=== PATIENT | male | born 1950 | race Caucasian/White ===

== ENCOUNTER 2016-07-18 06:16 | Observation (INO) ==
--- NOTE | 2016-07-18 06:42 | History and Physical Update ---
History and Physical Update - History and Physical H&P was reviewed, the patient examined and there: are no changes in the patients condition since last H&P was completed.
[2016-07-18] MEDS ORDERED: ceFAZolin 2,000 MG in PREMIX 1 EACH IV ONE (06:54)
[2016-07-18] MEDS ORDERED: METOCLOPRAMIDE 10 MG/2 ML VIAL ONE (07:21)
[2016-07-18] MEDS ORDERED: METOCLOPRAMIDE 10 MG/2 ML VIAL IV ONE (07:22)
[2016-07-18] MEDS ORDERED: FAMOTIDINE 20 MG/2 ML VIAL IV ONE ×2 (07:22→07:25)
[2016-07-18] MEDS ORDERED: ONDANSETRON 4 MG/2 ML VIAL ONE ×2 (07:30→10:12)
[2016-07-18] MEDS ORDERED: LIDOCAINE 2% 5 ML VIAL ONE (07:30)
[2016-07-18] MEDS ORDERED: PROPOFOL 200 MG/20 ML VIAL IV ONE (07:30)
[2016-07-18] MEDS ORDERED: HYDROmorphone 2 MG/1 ML VIAL IV PRN ×2 (09:37→10:22)
[2016-07-18] MEDS ORDERED: ACETAMINOPHEN 325 MG TABLET PO PRN (09:37)
[2016-07-18] MEDS ORDERED: oxyCODONE/ACETAMINOPHEN 5-325 MG TABLET PO PRN (09:37)
--- NOTE | 2016-07-18 09:51 | Operative Note ---
Date of procedure: 07/18/16 Pre-op diagnosis: Bilateral ischemic 10 toes/pressure ulcer of the scalp Post-op diagnosis: same Procedure: Operative note: Preoperative diagnosis: 1. 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 Pressure ulcer of the left side of scalp stage III Postoperative diagnosis: Same Procedure: 1. Right transmetatarsal amputation with flap closure 2. Left transmetatarsal amputation with flap closure 3. Excisional debridement of ulcer of the scalp Surgeon Dr. Alba Food Truck Caterer Macie Felton, [employer] ACNP Anesthesia general Brief history: 66-year-old white male who was septic while in [place] and during this time. His pressures were low he was on multiple pressors and he developed ischemic changes of the toes. He is done to [facility] where we have been treating him keep them clean and they have pretty well demarcated and it looks like we do not lose all the toes because of the ischemic changes in the necrotic eschar and tissue is present. Patient's are aware of this and agreeable to bilateral forefoot amputations. He also has a pressure ulcer of the posterior left Scalp area that looks like a stage III and will do some debridement there. Procedure: With patient supine position prepped and draped in sterile fashion timeout and antibiotics completed I then approached the area of the feet. We washed and cleaned up the Betadine and then marked our excisional incisions around the base of the toes at this time. At that point we went to the right foot were I did a incision through the skin subtenons tissue carried down deep into the tissue dividing the tendons at this time we got down to the bone. At that point I was able to get into the joints and completely disarticulate all the toes at this time to clean up this process. At real good bleeding that we had oversew with some 3-0 Vicryl suture on several arteries at this time. We debrided some tendon out of that and then I took the rondure and we debrided the cartilage off the metatarsal bone. At this point I felt like I had enough to close this and preserved metatarsal head so that maybe we could have better ambulation on him at this time. I was able to go ahead and washes up with saline solution then we were able to approximate the subtenons tissue 3-0 Vicryl and closed the skin with interrupted 3-0 nylon. With the right completed we went over to the left where in a similar fashion we went to the skin subtenons tissue going through at the base of the toes. Once I had cleaned this off completely I was able to disarticulate the toes themselves and remove them. I then took the drill and saw to go ahead and debride the cartilage off the bones. Had to debride little more the metatarsal head on the side in order to get a little better closure. Once that had been debrided and if that was cleaned we oversewed several vessels with 3-0 Vicryl in washed irrigated saline solution. We were then able to pull this together with 3-0 Vicryl in the subtenons tissue 3-0 nylon in the skin vertical mattress fashion. With these wounds completely Closed we were able to go ahead and clean up the legs and put a bulky dressing over it. That being completed I then went up to the left scalp area where initially I thought I might try to close this wound that looked like to be a little more tension more difficult than anticipated. The wound bed looks good with good granulating base present. It appears that he may be ready to go ahead and close I am still going to call as a stage III at this time. At this point I took the measurements which was 3 cm x 2.5 cm and then I took scissors and debrided the base of that wound removing the skin subtenons tissue around the edges and the deep subtenons tissue I this base. Once I had then had a good clean bleeding base and we put a bulky dressing on it. Patient was then taken to recovery room in stable satisfactory condition. Estimated blood loss 30 cc Sponge count correct 2 Drains none Complications none Condition stable satisfactory Anesthesia: ALPA Surgeon / Physician: Yariel Alba Food Truck Caterer: Macie Felton Estimated blood loss: other (30 cc) Specimens: other (Bilateral forefoot) Condition: stable Disposition: other ([facility]) Discharge Plan - Discharge Medications No Action Omeprazole [Prilosec] 20 mg PO BEDTIME Metoprolol Tartrate Tab [Lopressor Tab] 12.5 mg PO BEDTIME Lisinopril 20 mg PO BEDTIME HYDROcodone/ACETAMIN 7.5-325 [[place]co 7.5-325] 1 tablet PO Q4H PRN #30 tablet PRN Reason: Pain Moderate (4-7) Escitalopram [Lexapro] 10 mg PO BEDTIME Aspirin EC Tab 81 mg PO QOTHER DAY - Follow Up or Referral - Forms/Instructions
[2016-07-18] MEDS ORDERED: SODIUM CHLORIDE 0.45% 1,000 ML IV SCH (10:00)
[2016-07-18] MEDS ORDERED: ceFAZolin 2,000 MG in PREMIX 1 EACH IV SCH ×2 (10:00→13:30)
[2016-07-18] MEDS ORDERED: MIDAZOLAM 2 MG/2 ML VIAL ONE (10:03)
[2016-07-18] MEDS ORDERED: fentaNYL 100 MCG/2 ML VIAL ONE (10:03)
[2016-07-18] MEDS ORDERED: SEVOFLURANE 1 UNIT/15 MINUTE INH ONE (10:04)
[2016-07-18] MEDS ORDERED: HYDROmorphone 2 MG/1 ML VIAL ONE (10:12)
[2016-07-18] MEDS ORDERED: ONDANSETRON 4 MG/2 ML VIAL IV PRN (10:22)
[2016-07-18 10:23] LABS: Basophils # 0.1 10*3/uL (0.0-0.2); Basophils % 0.4 % (0.0-0.8); Eosinophils # 0.4 10*3/uL (0.0-0.87); Eosinophils % 2.2 % (0.00-10.9); Hematocrit 29.7 VOL% (42.0-52.0); Hemoglobin 9.4 GM/DL (14.0-18.0); Immature Granulocytes % 1.3 %; Immature Granulocytes Absolute 0.24 #; Lymphocytes # 2.5 10*3/uL (1.4-4.0); Lymphocytes % 14.1 % (21.2-54.2); Mean Corpuscular HGB Conc 31.6 GM/DL (32-36); Mean Corpuscular Hemoglobin 28 PG (27-34); Mean Corpuscular Volume 87.9 FL (87-102); Mean Platelet Volume 8.9 FL (9.6-12.0); Monocytes # 1.5 10*3/uL (0.11-0.8); Monocytes % 8.3 % (1.7-12.7); Neutrophils # 13.1 10*3/uL (1.4-7.4); Neutrophils % 73.7 % (38.7-73.9); Platelet Count 473 T/CUMM (130-400); Red Blood Count 3.38 MC/CUMM (3.8-5.5); White Blood Count 17.9 T/CUMM (4-12)
[2016-07-18] MEDS ORDERED: LACTATED RINGERS 1,000 ML IV SCH (10:30)
[2016-07-18 10:45] LABS: Calcium 8.4 MG/DL (8.5-10.1); Osmolality,Calculated 281.7 MOS/KG (273-304); Potassium 5.4 MMOL/L (3.5-5.1)
[2016-07-18 11:18] VITALS: BP 111/78
--- NOTE | 2016-07-18 14:06 | Anesthesia ---
Anesthesia Post OP - Post Ansesthetic Evaluation Patient seen in post op: Yes Resp: within normal limits CV: within normal limits Mental: within normal limits Temp: within normal limits [id number]: within normal limits Nausea and Vomiting: within normal limits Pain: within normal limits
[2016-07-18] MEDS ORDERED: LISINOPRIL 20 MG TABLET PO SCH (21:00)
[2016-07-18] MEDS ORDERED: METOPROLOL TARTRATE 25 MG TABLET PO SCH (21:00)
[2016-07-18] MEDS ORDERED: ESCITALOPRAM 10 MG TABLET PO SCH (21:00)
[2016-07-19] MEDS ORDERED: ENOXAPARIN 40 MG/0.4 ML SYRINGE SUBCUT SCH (03:41)
--- NOTE | 2016-07-19 11:49 | Pathology Report from [facility] ---
ACCESSION # : [id number] PATIENT NAME : Spencer Oates ORDERING DR : BECCA SANDY MD CLINICAL HX: Gangrene POST-OP DX: Same SPECIMEN INFO: #1 RT foot (5) toes #2 LT foot (5) toes GROSS DESCRIPTION: Received in formalin in two parts labeled:#1 "SPENCER OATES & #1" is a transmetatarsal amputation of gangrenous right great through 5th toes measuring 6.5 x 11.5 x 2.8 cm. A in store marketing representative section of gangrenous tissue is submitted in cassette #1.#2 "SPENCER OATES & #2" is a transmetatarsal amputation of the left gangrenous great through 5th toes measuring 7.0 x 10.5 x .28 cm. A in store marketing representative section is submitted in cassette #2. DIAGNOSIS FOR SPENCER OATES: #1 RIGHT FOOT FIVE TOES, AMPUTATION: Gangrene.#2 LEFT FOOT FIVE TOES, AMPUTATION: Gangrene. SERVICE DATE: 07/18/2016 REPORT DATE: 07/19/2016 PATHOLOGIST: Richmond Longoria
[2016-07-20] MEDS ORDERED: ASPIRIN EC 81 MG TABLET PO SCH (09:00)
== END 2016-07-18 13:19 ==
LOC: N.ICU
PROVIDERS: ADMIT Specialist; ATTEND Specialist

== ENCOUNTER 2016-10-23 19:45 | Inpatient (IN) ==
[2016-10-23] MEDS ORDERED: SODIUM CHLORIDE 0.9% 2,000 ML IV STA (21:25)
--- NOTE | 2016-10-23 21:25 | Emergency Department Note ---
I, Mendy De Luna, am scribing for, and in the presence of, Shimon Glaser MD 21:11. IJailyn Andrew, MD, personally performed the services described in this documentation, ascribed by Mendy De Luna in my presence, and it is both accurate and complete . Arrival - Arrival Chief Complaint: Fever Stated Complaint: HIGH FEVER ED Nursing Triage Note: C/C fever started yesterday. Recently has been septic before and stayed in hospital 3 months (has cancerous spot removed and got septic) Mode of Arrival: Wheelchair Limitations: No Limitations Source: Patient - History of Present Illness HPI Narrative: Pt is a 66 y/o male who came to ED with c/o fever that started yesterday. 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 Pt has appointment on November [address] Chan in [place] to replace with permanent stent (ERCP). Pt has associated sxs SOB and weakness. Family member notes that BP medications were switched and his BP has been more under control. PMHx of cholecystectomy. Onset (ago): day(s) Consistency: constant Severity: mild, moderate Severity scale (1-10): 4 Quality: aching Allergies/Adverse Reactions: Allergies Allergy/AdvReac Type Severity Reaction Status Date / Time No Known Allergies Allergy Verified 10/23/16 20:26 Home Medications: Home Medications Medication Instructions Recorded Confirmed Type Acetaminophen 325 mg PO Q6HR PRN 08/02/16 10/23/16 History Aspirin 81 mg PO DAILY 08/02/16 10/23/16 History Docusate Sodium 100 mg PO DAILY PRN 08/02/16 10/23/16 History Famotidine 20 mg PO BID 08/02/16 10/23/16 History Multivitamin (Centrum) [Centrum 1 tablet PO DAILY 08/02/16 10/23/16 History Tab] OLANZapine [Olanzapine] 5 mg PO Q8HR PRN 08/02/16 10/23/16 History Skin Healing Oint (Aquaphor) 1 applic TOP DAILY PRN 08/02/16 10/23/16 History [Aquaphor] oxyCODONE IR [Roxicodone] 5 mg PO Q4H PRN 08/02/16 10/23/16 History Collagenase Oint [Santyl Oint] 1 applic TOP DAILY #1 applic 08/10/16 10/23/16 Rx Metoprolol Tartrate 12.5 mg PO DAILY 10/24/16 10/24/16 History OLANZapine [Zyprexa] 10 mg PO DAILY 10/24/16 10/24/16 History Review of System - Review of System 12 point system: reviewed and no additional remarkable complaints except as stated - Review of System Constitutional: Present: fever, weakness, weight loss (55 lbs during 3 month hospital stay). Absent: chills Respiratory: Present: respiratory distress (SOB) Cardiovascular: Absent: chest pain Gastrointestinal: Absent: abdominal pain Medical,Surgical,& Family Hx - Medical History Cardio: History of: Hypertension No history of: CHF, CAD Psychological: History of: Anxiety Disorders No history of: Bipolar Disorder, Depression Neurology: No history of: Cerebrovascular Accident, Dementia, Parkinson's Disease, Seizures HEENT: History of: Eye Problem (double vision) Endocrine: No history of: Diabetes Mellitus (IDDM), Thyroid Disorder Rheumatology: No history of;: Fibromyalgia, Rheumatoid Arthritis Respiratory: History of: Intubation No history of: Asthma, Bronchitis, Pneumonia Renal: History of: Dialysis (temporarily during ARF, discontinued), Renal Failure (acute) Genitourinary: History of: Kidney Stones Gastrointestinal: History of: GERD, Hemorrhoids (occassionally) No history of: Crohn's Disease, Ulcerative Colitis Musculoskeletal: History of: Amputation (bilat complete metatarsal amputation) No history of: Osteoporosis Hematology: No history of: Anemia, Blood Transfusion Reaction, Blood Disorders Other: No history of: Cancer, Skin Problems - Surgical History Cardiac Surgeries: Patient Denies: Cardiac Catheterization, Cardiac Surgery Thoracic Surgeries: Patient denies;: Organ Transplant Neurologic Surgeries: Patient denies: Neurologic Surgery HEENT Surgeries: Surgical HX of: Eye Surgery (Lasik eye surgery) Patient denies: Tonsilectomy & Adenoidectomy Abdominal Surgeries: Surgical HX of: Cholecystectomy, Colonoscopy, Hernia Repair (umbilical 12 years ago) Patient denies: Appendectomy Reproductive Surgeries: Surgical HX of;: Genitourinary Surgery (circumsion 12 years ago) Orthopedic Surgeries: Patient denies;: Total Hip Replacement, Total Knee Replacement - Family History Family History: Reports;: Family Cancer, Family Stroke Denies;: Family Anesthesia Reaction, Family Diabetes, Family Heart Disease, Family Hypertension, Family Psychiatric Problems - Social History Smoking Status: Never smoker Exam Vital Signs: Vital Signs Temperature 98.4 F 10/24/16 03:50 Pulse Rate 105 H 10/24/16 05:04 Respiratory Rate 18 10/24/16 03:50 Blood Pressure 97/54 10/24/16 03:50 O2 Sat by Pulse Oximetry 100 10/24/16 03:50 - General General appearance: alert, in no apparent distress - Head Head exam: Present: atraumatic, normocephalic - Eye Eye exam: Present: PERRL, EOMI - ENT ENT exam: Present: mucous membranes moist. Absent: mucous membranes dry - Neck Neck exam: Present: full ROM. Absent: tenderness - Chest Chest inspection: Present: symmetric chest wall rise. Absent: tenderness - Respiratory Respiratory exam: Present: normal lung sounds bilaterally. Absent: accessory muscle use, respiratory distress - Cardiovascular Cardiovascular exam: Present: tachycardia, normal heart sounds - Abdominal Exam Abdominal exam: Present: soft, normal bowel sounds. Absent: tenderness - Extremities Exam Extremities exam: Present: full ROM. Absent: tenderness, pedal edema - Neurological Exam Neurological exam: Present: alert, oriented X3, CN II-XII intact. Absent: motor sensory deficit - Psychiatric Psychiatric exam: Present: normal affect, normal mood - Skin Skin exam: Present: warm, dry Course Course Narrative: Labs with multiple abnormalities, elevated total bilirubin at 2 which is a significant jump from previous, also with elevated alkaline phosphatase and AST , ALT.CT scan without evidence of biliary stent occlusion. Patient discussed with Dr. Lacey with GI, he states that it would be a good idea to observe the patient, and if the patient is to need any GI intervention for the biliary stent, he feels comfortable handling this. Patient discussed with the hospitalist for admission for further management and workup. Results - Labs CBC & BMP: 10/24/16 04:34 10/23/16 20:54 Lab Results: I have reviewed the patients labs Labs: Laboratory Tests 10/23/16 10/23/16 20:54 20:54 WBC 9.8 RBC 4.35 Hgb 13.0 L Hct 37.8 L MCV 86.9 L Plt Count 214 Neut % (Auto) 85.6 H Lymph % (Auto) 5.2 L Neut # (Auto) 8.4 H Lymph # (Auto) 0.5 L Lymphocytes 8 L Platelet Estimate Adequate Sodium 138 Potassium 3.1 L Chloride 104 Carbon Dioxide 22 Anion Gap 15.1 H Glucose 222 H Total Bilirubin 2.10 H AST 172 H ALT 160 H Alkaline Phosphatase 945 H Lipase 86.0 Laboratory Tests 10/23/16 22:50 Urine Color Aileen Urine Appearance Clear Urine pH 5.0 Ur Specific [place] 1.026 Urine Blood Negative Urine Urobilinogen 2.0 H Urine RBC 1 Urine WBC 2 Urine Mucus Occasional Disposition Clinical Impression: Total bilirubin, elevated, Fever, Elevated liver enzymes, History of biliary stent insertion Case discussed with: patient, patient's family Disposition: Still a Patient Condition: Guarded
[2016-10-23 21:33] LABS: Basophils % 0.2 % (0.0-0.8); Eosinophils % 0.3 % (0.00-10.9); Hematocrit 37.8 VOL% (42.0-52.0); Immature Granulocytes % 0.4 %; Immature Granulocytes Absolute 0.04 #; Lymphocytes # 0.5 10*3/uL (1.4-4.0); Lymphocytes % 5.2 % (21.2-54.2); Mean Corpuscular HGB Conc 34.4 GM/DL (32-36); Mean Corpuscular Hemoglobin 30 PG (27-34); Mean Corpuscular Volume 86.9 FL (87-102); Mean Platelet Volume 10.1 FL (9.6-12.0); Monocytes # 0.8 10*3/uL (0.11-0.8); Monocytes % 8.3 % (1.7-12.7); Neutrophils # 8.4 10*3/uL (1.4-7.4); Neutrophils % 85.6 % (38.7-73.9); Platelet Count 214 T/CUMM (130-400); Red Blood Count 4.35 MC/CUMM (3.8-5.5); Red Cell Distribution Width 13.4 % (9.3-17.3); White Blood Count 9.8 T/CUMM (4-12)
[2016-10-23 21:47] LABS: Albumin 3.6 G/DL (3.4-5.0); Bilirubin,Total 2.1 MG/DL (0.2-1.0); Calcium 8.9 MG/DL (8.5-10.1); Osmolality,Calculated 281.7 MOS/KG (273-304); Potassium 3.1 MMOL/L (3.5-5.1); Total Protein 6.4 G/DL (6.4-8.3)
[2016-10-23 21:53] LABS: Band Neutrophils 8 % (0-10); Lymphocytes 8 % (20-55); Segmented Neutrophils 75 % (50-85); Total Cells Counted 100
[2016-10-23 21:54] LABS: Platelet Estimate Adequate
[2016-10-23 22:57] LABS: Apearance,Urine CLEAR (Clear); Bilirubin,Urine Negative (Negative); Blood, Urine Negative (Negative); Glucose,Urine (UA) Negative (Negative); Ketones,Urine Negative (Negative); Mucus,Urine Occasional /LPF (Occasional); Nitrite,Urine Negative (Negative); Protein,Urine Negative; RBC,Urine 1 /HPF (0-4); Urine Color Amber (Yellow); Urine Specific Gravity 1.026 (1.001-1.035); WBC,Urine 2 /HPF (0-6)
[2016-10-23] MEDS ORDERED: ACETAMINOPHEN 500 MG TABLET ONE (23:40)
[2016-10-23] MEDS ORDERED: ACETAMINOPHEN 500 MG TABLET PO STA (23:41)
[2016-10-24] MEDS ORDERED: BISACODYL 5 MG TABLET PO PRN (01:42)
[2016-10-24] MEDS ORDERED: ONDANSETRON 4 MG/2 ML VIAL IV PRN (01:42)
[2016-10-24] MEDS ORDERED: POTASSIUM CHLORIDE 20 MEQ TABLET PO ONE (01:42)
[2016-10-24] MEDS ORDERED: ZALEPLON 5 MG CAPSULE PO PRN (01:42)
--- NOTE | 2016-10-24 01:51 | Hospitalist History & Physical ---
Assessment and Plan (1) Diverticulitis Status: Acute Assessment and plan: Start Cipro and Flagyl. Consult GI. IV fluids. Current Visit: Yes (2) History of biliary stent insertion Status: Acute Current Visit: Yes (3) Abnormal LFTs (liver function tests) Status: Acute Assessment and plan: Elevated AST ALT and alk phos with elevated bilirubin. GI consult Dr. Lacey. Current Visit: Yes (4) Hyperbilirubinemia Status: Acute Current Visit: Yes (5) S/P transmetatarsal amputation of foot Status: Chronic Current Visit: No History of Present Illness Chief complaint: Fever History of present illness: Mr. Oates is a 66 year old male that came to ED with c/o fever that started yesterday. 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 He was hospitlaized with sepsis at [facility] with 55 lbs of weight loss during hospitalization of 3 months. Pt has appointment on November [address] Chan in [place] to replace with permanent stent (ERCP). Pt has associated sxs SOB and weakness. Family member notes that BP medications were switched and his BP has been more under control. PMHx of cholecystectomy. He denies any recent illness or hospitalization. He has no other symptoms associated with his fever. He denies nausea or vomiting. No diarrhea. No night sweats. No cough or congestion. He was evaluated in the emergency department with a CT scan of the abdomen and pelvis which showed some colonic wall thickening suggestive of diverticulitis. His liver imaging did not show any acute pathology although his liver function tests are abnormal. His spleen did not appear normal on the CT either. Dr. Lacey was contacted by the emergency room physician regarding his abnormal LFTs and CT scan findings. The patient will not be admitted to the hospitalist service as his primary care physician is Dr. Jacques. I will start him on broad-spectrum IV antibiotics with Cipro and Flagyl to treat for diverticulitis and other possible intra- abdominal pathology. The patient's abdomen is soft and nontender and nondistended. He is pleasant and cooperative. His family is at the bedside. He is a full code. His home medications were reviewed and reconciled. He does not know the dose of Zyprexa he is currently taking. His family will try to get us that dose tomorrow. He is otherwise feeling well. Home Medications Medication Instructions Recorded Confirmed Type Acetaminophen 325 mg PO Q6HR PRN 08/02/16 10/23/16 History Aspirin 81 mg PO DAILY 08/02/16 10/23/16 History Docusate Sodium 100 mg PO DAILY PRN 08/02/16 10/23/16 History Famotidine 20 mg PO BID 08/02/16 10/23/16 History Multivitamin (Centrum) [Centrum 1 tablet PO DAILY 08/02/16 10/23/16 History Tab] OLANZapine [Olanzapine] 5 mg PO Q8HR PRN 08/02/16 10/23/16 History Skin Healing Oint (Aquaphor) 1 applic TOP DAILY PRN 08/02/16 10/23/16 History [Aquaphor] oxyCODONE IR [Roxicodone] 5 mg PO Q4H PRN 08/02/16 10/23/16 History Collagenase Oint [Santyl Oint] 1 applic TOP DAILY #1 applic 08/10/16 10/23/16 Rx Metoprolol Tartrate 12.5 mg PO DAILY 10/24/16 10/24/16 History OLANZapine [Zyprexa] mg PO 10/24/16 History Allergies Allergy/AdvReac Type Severity Reaction Status Date / Time No Known Allergies Allergy Verified 10/23/16 20:26 Medical,Surgical,& Family Hx - Medical History Cardio: History of: Hypertension No history of: CHF, CAD Psychological: History of: Anxiety Disorders No history of: Bipolar Disorder, Depression Neurology: No history of: Cerebrovascular Accident, Dementia, Parkinson's Disease, Seizures HEENT: History of: Eye Problem (double vision) Endocrine: No history of: Diabetes Mellitus (IDDM), Thyroid Disorder Rheumatology: No history of;: Fibromyalgia, Rheumatoid Arthritis Respiratory: History of: Intubation No history of: Asthma, Bronchitis, Pneumonia Renal: History of: Dialysis (temporarily during ARF, discontinued), Renal Failure (acute) Genitourinary: History of: Kidney Stones Gastrointestinal: History of: GERD, Hemorrhoids (occassionally) No history of: Crohn's Disease, Ulcerative Colitis Musculoskeletal: History of: Amputation (bilat complete metatarsal amputation) No history of: Osteoporosis Hematology: No history of: Anemia, Blood Transfusion Reaction, Blood Disorders Other: No history of: Cancer, Skin Problems - Surgical History Cardiac Surgeries: Patient Denies: Cardiac Catheterization, Cardiac Surgery Thoracic Surgeries: Patient denies;: Organ Transplant Neurologic Surgeries: Patient denies: Neurologic Surgery HEENT Surgeries: Surgical HX of: Eye Surgery (Lasik eye surgery) Patient denies: Tonsilectomy & Adenoidectomy Abdominal Surgeries: Surgical HX of: Cholecystectomy, Colonoscopy, Hernia Repair (umbilical 12 years ago) Patient denies: Appendectomy Reproductive Surgeries: Surgical HX of;: Genitourinary Surgery (circumsion 12 years ago) Orthopedic Surgeries: Patient denies;: Total Hip Replacement, Total Knee Replacement - Family History Family History: Reports;: Family Cancer, Family Stroke Denies;: Family Anesthesia Reaction, Family Diabetes, Family Heart Disease, Family Hypertension, Family Psychiatric Problems - Social History Smoking Status: Never smoker Frequency of Alcohol Use: None Type of Drug Use: None Marital Status: Lives With:: Spouse Functional capacity: uses cane/walker 12 point system: reviewed and no additional remarkable complaints except as stated - Constitutional Constitutional: Present: fever(s) Exam - Constitutional Vitals: Period Temp Pulse Resp BP Sys/Parry Pulse Ox Last 24 Hr 98.8 F-99.3 F 124-124 18-20 99-99/63-63 96 Exam: Constitutional System: No distress. No tremulousness. Head: Normocephalic, atraumatic. Ears, Nose and Throat System: No pain or tenderness. No epistaxis or discharge Eyes System: Pupils equal, round, and reactive. Extraocular muscles intact. Neck: Supple, without adenopathy, No jugular venous distention. No thyromegaly, neck mass, or prior surgery apparent. Respiratory System: Chest clear to auscultation. Cardiovascular System: Heart with regular rate and rhythm. No murmur. GI System: Abdomen soft, nontender. Normo active bowel sounds present. Musculoskeletal System: limbs with no pedal edema. Full distal pulses. Toe amputations noted Neurological System: No discernable sensory deficit. No aphasia Psychiatric System: Conversation is rational Results - Labs CBC & BMP: 10/23/16 20:54 10/23/16 20:54 Lab Results: I have reviewed the past 24 hour labs - Diagnostic Findings Procedure: CT Abdomen and Pelvis: image reviewed by me, report reviewed by me
[2016-10-24] MEDS ORDERED: SKIN HEALING OINT (AQUAPHOR) 50 GM TUBE TOP PRN (02:27)
[2016-10-24] MEDS ORDERED: DOCUSATE SODIUM 100 MG CAPSULE PO PRN (02:27)
[2016-10-24] MEDS: metroNIDAZOLE INJ 500 MG in PREMIX 1 EACH IV SCH ×3 (02:54→17:28)
[2016-10-24] MEDS: ENOXAPARIN 40 MG/0.4 ML SYRINGE SUBCUT SCH (02:56)
[2016-10-24] MEDS: CIPROFLOXACIN INJ 400 MG in PREMIX 1 EACH IV SCH ×2 (03:45→13:59)
[2016-10-24 05:25] LABS: Basophils % 0.2 % (0.0-0.8); Eosinophils % 0.3 % (0.00-10.9); Hematocrit 35.5 VOL% (42.0-52.0); Hemoglobin 11.7 GM/DL (14.0-18.0); Immature Granulocytes % 0.6 %; Immature Granulocytes Absolute 0.07 #; Lymphocytes # 1.1 10*3/uL (1.4-4.0); Lymphocytes % 9.3 % (21.2-54.2); Mean Corpuscular Hemoglobin 30 PG (27-34); Mean Corpuscular Volume 89.6 FL (87-102); Monocytes # 0.7 10*3/uL (0.11-0.8); Monocytes % 6.2 % (1.7-12.7); Neutrophils % 83.4 % (38.7-73.9); Platelet Count 199 T/CUMM (130-400); Red Blood Count 3.96 MC/CUMM (3.8-5.5); Red Cell Distribution Width 13.5 % (9.3-17.3)
--- NOTE | 2016-10-24 06:03 | XRay Report ---
XR chest 1V portable Indication: Shortness of breath and fever. Comparison: Chest x-ray 08/01/2016 Technique: Portable AP chest was performed. Findings: Left lung base has improved in appearance with better definition of the left hemidiaphragm as well as decreased blunting the left costophrenic angle. Nonspecific stranding present bilaterally within the lung bases may impart reflect atelectasis. The mid and upper lungs are clear. The chest is otherwise stable. Impression: 1. Improved appearance of the left lung base compared to previous study suggests improving left-sided pleural effusion. Lung parenchyma suggests bibasilar atelectatic changes. 10/24/2016 5:59 AM PROCEDURE INTERPRETED AT [facility] DEPARTMENT OF RADIOLOGY Final Report Signed by: Dr. Moreno Rey
[2016-10-24 06:07] LABS: Albumin 3.1 G/DL (3.4-5.0); Bilirubin,Total 1.8 MG/DL (0.2-1.0); Calcium 8.5 MG/DL (8.5-10.1); Magnesium 1.7 MG/DL (1.8-2.4); Osmolality,Calculated 280.3 MOS/KG (273-304); Potassium 4.6 MMOL/L (3.5-5.1); Thyroid Stimulating Hormone 1.6 uIU/ml (0.358-3.74); Total Protein 5.8 G/DL (6.4-8.3)
[2016-10-24 06:30] LABS: Band Neutrophils 30 % (0-10); Hypochromasia Slight; Lymphocytes 2 % (20-55); Platelet Estimate Adequate; Segmented Neutrophils 59 % (50-85); Total Cells Counted 100
--- NOTE | 2016-10-24 06:33 | CT Report ---
CT abdomen pelvis w con Indication: Elevated bilirubin levels. History of previous biliary stent placement. Fever. Comparison: CT of abdomen and pelvis 05/16/2016. Technique: CT of the abdomen and pelvis was performed following administration of intravenous contrast. The CT examination was performed using one or more of the following dose reduction techniques: Automatic exposure control, adjustment of the mA and kV according to patient size, or iterative reconstruction techniques. Findings: Small left-sided pleural effusion and associated compressive atelectasis of the left lower lobe is demonstrated. Trace right-sided pleural effusion additionally is suggested. Heart size appears upper limits of normal. The distal esophagus is grossly unremarkable. Underlying the anterior margin of the lateral segment left hepatic lobe, there is a hypoattenuating lesion with some evidence of peripheral enhancement measuring 2.1 cm transverse dimension, 1.5 cm in AP dimension, and 1.9 cm in craniocaudal dimension. This lesion has developed since the comparison study. Extensive air is present throughout the biliary system. A second 10 mm lesion is present within the hilum of the right hepatic lobe image #50. This also was not previously demonstrated. These lesions are compatible with metastatic disease. Spleen is enlarged. There is a complex fluid collection present along the lateral surface of the spleen. The spleen demonstrates a central linear focus of low attenuation extends from the lateral surface through the spleen. Spleen measures 15 cm x 7.3 cm x 11.2 cm. This fluid collection has a small focus of organization measuring 3.9 x 1.9 x 2.4 cm with additional fluid more laterally located. Differential considerations include postoperative fluid collections, abscess, sequelae of splenic rupture, and infection. In addition, there is a small splenule suggested which has increased in size since the comparison study. This has heterogeneous attenuation and portal venous phase isoattenuates displacing the delayed phase and may simply reflect late arterial phase artifact. Numerous collaterals are noted in the splenic hilum. Distal biliary stent remains present. The pancreatic head is not well defined. No ductal dilatation of the pancreas is present with the exception of a short segment of duct enlargement within the distal pancreatic body. Pancreatic head mass and/or biliary mass cannot be excluded. Numerous bilateral renal cysts again are demonstrated. Adrenal glands are unremarkable. The appearance of the stomach suggests some antral thickening. The duodenum demonstrates no evidence of acute pathology. Small bowel loops demonstrate no specific abnormality. Numerous diverticula are present within the sigmoid colon and rectum as well as descending colon. No acute inflammation is present. There does appear to be some wall thickening along the ascending colon that is nonspecific and could reflect inflammation. Intrapelvic contents demonstrate no evidence of acute pathology. Enlarged portacaval lymph nodes measure up to 12 mm. Osseous structures demonstrate no evidence of acute pathology. Total loss of intervertebral disc space at L3-4 and L5-S1 is present with vacuum disc phenomenon at these levels. Multilevel facet arthropathy is noted bilaterally within the lower lumbar spine. Sclerotic lesion of the left iliac wing has changed little in size or appearance since the comparison study. Additional small foci of increased attenuation noted within the left sacrum adjacent the left SI joint with small foci of tissue present within the posterior ilium as well as multiple vertebral bodies of the lumbar spine. Impression: 1. Interval development of fluid collection along the lateral boundary of the spleen with defect of the spleen as well as splenomegaly, minimal associated findings to suggest portal venous hypertension could reflect evidence of splenic rupture or other laceration and adjacent splenic hematoma without evidence of extravasation of contrast. Other considerations could include infection and abscess as well as postsurgical changes. 2. Biliary stent remains present. There is extensive air throughout the biliary system as well as air-fluid level within the extrahepatic bile duct. Infectious process is not excluded. 3. Portacaval adenopathy has differentials including metastatic as well as reactive etiologies. 4. Interval development of multiple liver lesions compatible with metastatic disease. 5. Colonic diverticulosis is present without evidence of diverticulitis. 6. Small left-sided pleural effusion. 7. Minimal wall thickening involving the ascending colon is a nonspecific finding. There may be additional minimal wall thickening the transverse large bowel. 10/24/2016 6:19 AM PROCEDURE INTERPRETED AT [facility] DEPARTMENT OF RADIOLOGY Final Report Signed by: Dr. Moreno Rey
--- NOTE | 2016-10-24 08:03 | Event Note ---
Patient was seen and chart reviewed. Patient admitted last evening by Dr. rivas. This is 66-year-old male who came to the emergency room with fever. CT scanning of the abdomen and pelvis revealed some colonic wall thickening suggestive of diverticulitis. He also had elevated liver function studies and has had biliary stent placement at [facility] in the past. He is now being admitted for IV fluids, IV antibiotics and formal GI consultation.
[2016-10-24] MEDS ORDERED: MORPHINE 2 MG/1 ML SYRINGE IV PRN ×2 (08:51)
[2016-10-24] MEDS: PANTOPRAZOLE 40 MG TABLET PO SCH (09:04)
[2016-10-24] MEDS: ASPIRIN CHEW 81 MG TABLET PO SCH (09:04)
[2016-10-24] MEDS: MULTIVITAMIN (CENTRUM) TABLET PO SCH (09:04)
[2016-10-24] MEDS: METOPROLOL TARTRATE 25 MG TABLET PO SCH (09:04)
[2016-10-24] MEDS: FAMOTIDINE 20 MG TABLET PO SCH ×2 (09:04→20:04)
[2016-10-24] MEDS: COLLAGENASE OINT 30 GM TUBE TOP SCH (09:05)
--- NOTE | 2016-10-24 10:51 | EKG Report ---
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
--- NOTE | 2016-10-24 14:07 | Gastrointestinal Consult Note ---
Assessment and Plan (1) Fever Status: Acute Assessment and plan: Source for this unclear but may be biliary/element of cholangitis. Common bile duct stent, presumably 10 D[address], has been in place for 4-1/2 months. However, on CT large amount of pneumobilia is present suggesting the stent is patent. Also liver tests which were mildly elevated last night or some improved today. Has questionable right colon thickening on CT raising question of inflammatory process there such as diverticulitis but he has no symptoms referable to this and is nontender on exam. I agree with empiric IV quinolone for now and await blood culture data. Repeat liver profile tomorrow. If blood cultures grow organisms suggestive of cholangitis source, such as E. coli, or liver tests trend upward, he will need common bile duct stent replacement. He is scheduled to go back to [facility] with Dr. Chan for metal common bile duct stent placement they say on 11/03. Current Visit: Yes History of Present Illness Chief complaint: Fever History of present illness: Mr. Oates is a 66 year old male who had clinical diagnosis of cholangiocarcinoma made at [facility] on 06/10/16. He had initially had mid common bile duct stricture noted at intraoperative cholangiogram for cholecystectomy with symptomatic gallstones. ERCP was performed then by me with suboptimal opacification of common bile duct. He was referred to [facility] and ultimately had ERCP by Dr. Chan. I do not have all of his records but patient and family describe what sound like cytologic brushings which were negative though he still felt this was malignancy. 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 Patient presented to the emergency room last night after developing fever with chills. He had fever to 101 at home. He denies any localizing GI symptoms including abdominal pain, change in bowel movement, or nausea/vomiting. He also denies cough, sputum production, or any genitourinary symptoms other than he has noted his urine to be darker the last few days. Home Medications Medication Instructions Recorded Confirmed Type Acetaminophen 325 mg PO Q6HR PRN 08/02/16 10/23/16 History Aspirin 81 mg PO DAILY 08/02/16 10/23/16 History Docusate Sodium 100 mg PO DAILY PRN 08/02/16 10/23/16 History Famotidine 20 mg PO BID 08/02/16 10/23/16 History Multivitamin (Centrum) [Centrum 1 tablet PO DAILY 08/02/16 10/23/16 History Tab] OLANZapine [Olanzapine] 5 mg PO Q8HR PRN 08/02/16 10/23/16 History Skin Healing Oint (Aquaphor) 1 applic TOP DAILY PRN 08/02/16 10/23/16 History [Aquaphor] oxyCODONE IR [Roxicodone] 5 mg PO Q4H PRN 08/02/16 10/23/16 History Collagenase Oint [Santyl Oint] 1 applic TOP DAILY #1 applic 08/10/16 10/23/16 Rx Metoprolol Tartrate 12.5 mg PO DAILY 10/24/16 10/24/16 History OLANZapine [Zyprexa] 10 mg PO DAILY 10/24/16 10/24/16 History Allergies Allergy/AdvReac Type Severity Reaction Status Date / Time No Known Allergies Allergy Verified 10/23/16 20:26 Medical,Surgical,& Family Hx - Medical History Cardio: History of: Hypertension No history of: CHF, CAD Psychological: History of: Anxiety Disorders No history of: Bipolar Disorder, Depression Neurology: No history of: Cerebrovascular Accident, Dementia, Parkinson's Disease, Seizures HEENT: History of: Eye Problem (double vision) Endocrine: No history of: Diabetes Mellitus (IDDM), Thyroid Disorder Rheumatology: No history of;: Fibromyalgia, Rheumatoid Arthritis Respiratory: History of: Intubation No history of: Asthma, Bronchitis, Pneumonia Renal: History of: Dialysis (temporarily during ARF, discontinued), Renal Failure (acute) Genitourinary: History of: Kidney Stones Gastrointestinal: History of: GERD, Hemorrhoids (occassionally) No history of: Crohn's Disease, Ulcerative Colitis Musculoskeletal: History of: Amputation (bilat complete metatarsal amputation) No history of: Osteoporosis Hematology: No history of: Anemia, Blood Transfusion Reaction, Blood Disorders Other: No history of: Cancer, Skin Problems - Surgical History Cardiac Surgeries: Patient Denies: Cardiac Catheterization, Cardiac Surgery Thoracic Surgeries: Patient denies;: Organ Transplant Neurologic Surgeries: Patient denies: Neurologic Surgery HEENT Surgeries: Surgical HX of: Eye Surgery (Lasik eye surgery) Patient denies: Tonsilectomy & Adenoidectomy Abdominal Surgeries: Surgical HX of: Cholecystectomy, Colonoscopy, Hernia Repair (umbilical 12 years ago) Patient denies: Appendectomy Reproductive Surgeries: Surgical HX of;: Genitourinary Surgery (circumsion 12 years ago) Orthopedic Surgeries: Patient denies;: Total Hip Replacement, Total Knee Replacement - Family History Family History: Reports;: Family Cancer, Family Stroke Denies;: Family Anesthesia Reaction, Family Diabetes, Family Heart Disease, Family Hypertension, Family Psychiatric Problems - Social History Smoking Status: Never smoker Frequency of Alcohol Use: None Type of Drug Use: None - Constitutional Constitutional: Present: chills, fever(s), weight loss - EENT Nose, mouth and throat: Absent: dysphagia, epistaxis - Cardiovascular Cardiovascular: Absent: chest pain with activity, orthopnea, PND - Respiratory Respiratory: Absent: cough, dyspnea, hemoptysis - Gastrointestinal Gastrointestinal: Absent: abdominal pain, diarrhea, dysphagia, melena, nausea, vomiting - Genitourinary Genitourinary: Absent: difficulty urinating, dysuria, flank pain - Neurological Neurological: Absent: abnormal speech, behavioral changes, focal weakness Exam - Constitutional Vitals: Period Temp Pulse Resp BP Sys/Parry Pulse Ox Last 24 Hr 98.2 F-100.4 F 65-125 16-22 97-134/54-75 96-100 General appearance: no acute distress - Head Head exam: Present: normocephalic, atraumatic - Eye Eye exam: Present: EOMI. Absent: scleral icterus - Respiratory Respiratory exam: Present: clear to auscultation bilaterally. Absent: wheezes - Cardiovascular Cardiovascular exam: Present: regular rate and rhythm. Absent: gallop, rubs - GI/Abdominal GI/Abdominal exam: Present: normal bowel sounds, soft. Absent: distended, tenderness - Extremities Exam Extremities exam: Absent: calf tenderness, edema - Neurological Exam Neurological exam: Present: alert, oriented X3, CN II-XII intact - Skin Skin exam: Present: warm, dry Results - Labs CBC & BMP: 10/24/16 04:34 10/24/16 04:35 Lab Results: I have reviewed the past 24 hour labs
[2016-10-25] MEDS: metroNIDAZOLE INJ 500 MG in PREMIX 1 EACH IV SCH ×3 (01:57→18:43)
[2016-10-25] MEDS: CIPROFLOXACIN INJ 400 MG in PREMIX 1 EACH IV SCH ×2 (02:55→13:59)
[2016-10-25] MEDS: ENOXAPARIN 40 MG/0.4 ML SYRINGE SUBCUT SCH (03:00)
[2016-10-25 05:38] LABS: Bilirubin,Total 3.5 MG/DL (0.2-1.0); Calcium 8.5 MG/DL (8.5-10.1); Osmolality,Calculated 279.4 MOS/KG (273-304); Potassium 3.8 MMOL/L (3.5-5.1); Total Protein 5.7 G/DL (6.4-8.3)
[2016-10-25] MEDS: PANTOPRAZOLE 40 MG TABLET PO SCH (08:05)
[2016-10-25] MEDS: MULTIVITAMIN (CENTRUM) TABLET PO SCH (08:05)
[2016-10-25] MEDS: FAMOTIDINE 20 MG TABLET PO SCH ×2 (08:05→20:06)
[2016-10-25] MEDS: METOPROLOL TARTRATE 25 MG TABLET PO SCH (08:05)
[2016-10-25] MEDS: COLLAGENASE OINT 30 GM TUBE TOP SCH (08:06)
--- NOTE | 2016-10-25 08:07 | Hospitalist Progress Note ---
Assessment and Plan (1) Fever Status: Acute Assessment and plan: Positive blood culture for gram-negative humera at this time. Current Visit: Yes (2) History of biliary stent insertion Status: Chronic Assessment and plan: Presentation April with cholelithiasis ( laparoscopic cholecystectomy performed at that time) and bile duct stricture with subsequent biliary stenting performed at [facility]. Reported progression of CT scan abnormalities with no lesions within the mary hepatis liver and splenomegaly Current Visit: Yes Hospitalist: Subjective Interval history: 66-year-old male apparently diagnosed with biliary obstruction in April. He underwent ERCP and subsequent laparoscopic cholecystectomy. The findings indicated bile duct stricture and although stones were present in the gallbladder none were identified in the ductal system. In May he was evaluated and [facility] underwent stenting of the bile duct with a tentative diagnosis at this time of cholangiocarcinoma. He presented with chills. Blood culture currently is positive for gram-negative humera which has not yet been identified. He has defervesced and feels much better this morning. There is no nausea or vomiting. His CT scan in addition to the biliary tract finding shows lesions within the liver as well as splenomegaly which had not been present on the CT scan performed in April 2016. Exam - Constitutional Vitals: Period Temp Pulse Resp BP Sys/Parry Pulse Ox Last 24 Hr 97.9 F-99.5 F 55-86 16-20 105-127/53-74 95-97 General appearance: normal weight, no acute distress - Respiratory Respiratory exam: Present: clear to auscultation bilaterally. Absent: rales, rhonchi, wheezes - Cardiovascular Cardiovascular exam: Present: regular rate and rhythm - GI/Abdominal GI/Abdominal exam: Absent: ascites, distended, tenderness - Extremities Exam Extremities exam: Absent: edema - Neurological Exam Neurological exam: Present: alert, oriented X3 Results - Labs CBC & BMP: 10/24/16 04:34 10/25/16 03:15 Labs: Total bilirubin 3.5 Albumin 3.0 AST 63 ALT 110 Alkaline phosphatase 615
--- NOTE | 2016-10-25 12:03 | Event Note ---
Chief complaint possible cholangitis. Clinically improved with no complaints abdominal pain no nausea vomiting is afebrile at this time. Bilirubin is 3.5 and clinically he seems to be doing much better per his report. Blood cultures are positive for gram-negative rods which likely represent a biliary source. Patient does have a biliary catheter in place that was placed in April with plans to revise this next week. There is concern there may be underlying malignancy apparently and consideration of metal stent has been entertained but certainly infection will need to be in control prior to contemplation of metallic stent placement. He has had no further nausea vomiting complaints today. Review of systems denies any shortness of breath or chest pain On exam well-developed well-nourished white male sclerae anicteric lids conjunctiva is unremarkable Oropharynx is benign neck is supple no JVD no thyromegaly Lungs clear to auscultation respiratory distress Heart regular rate rhythm no murmur no edema Abdomen is soft nondistended nontender no masses no hepatosplenomegaly bowel sounds normoactive Extremities no clubbing cyanosis or edema all 4 extremities. Recommendations: 1. Gram-negative bacteremia likely secondary to biliary source. Clinically improved so would continue with IV antibiotics to control this infection. If he continues to improve clinically I would continue with his plan for biliary exchange as already scheduled. Certainly if bilirubin continues to increase or clinical backsliding occurs revision of his plastic stent may be required in the interval. Overall he is better today and I would continue to observe. Dr. Lacey will resume care tomorrow.
[2016-10-26] MEDS: metroNIDAZOLE INJ 500 MG in PREMIX 1 EACH IV SCH ×3 (02:30→18:54)
[2016-10-26] MEDS: ENOXAPARIN 40 MG/0.4 ML SYRINGE SUBCUT SCH (02:59)
[2016-10-26] MEDS: CIPROFLOXACIN INJ 400 MG in PREMIX 1 EACH IV SCH ×2 (03:41→13:50)
[2016-10-26 06:31] LABS: Calcium 9.2 MG/DL (8.5-10.1); Osmolality,Calculated 280.3 MOS/KG (273-304); Potassium 4.2 MMOL/L (3.5-5.1); Total Protein 5.8 G/DL (6.4-8.3)
--- NOTE | 2016-10-26 07:43 | Hospitalist Progress Note ---
Assessment and Plan (1) Fever Status: Acute Assessment and plan: Positive blood culture for gram-negative humera at this time. Current Visit: Yes (2) History of biliary stent insertion Status: Chronic Assessment and plan: Presentation April with cholelithiasis ( laparoscopic cholecystectomy performed at that time) and bile duct stricture with subsequent biliary stenting performed at [facility]. Reported progression of CT scan abnormalities with new lesions within the mary hepatis, liver with splenomegaly Current Visit: Yes Hospitalist: Subjective Interval history: 66-year-old male biliary obstruction in April. He underwent ERCP with subsequent laparoscopic cholecystectomy. There was no bile duct stone but a stricture was present and in May he was evaluated in [place] undergoing stenting of the bile duct and tentative diagnosis of possible cholangiocarcinoma. He presented on this occasion with chills and fever. Blood cultures are positive for gram-negative humera identification of which is currently pending. He has defervesced during the hospital stay and feels well. This admission CT scan in addition to the biliary tract finding showed lesions within the liver splenomegaly which had not been present on the scan available from April. Once again overnight he was afebrile vital signs stable he continues to feel well. 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 Exam - Constitutional Vitals: Period Temp Pulse Resp BP Sys/Parry Pulse Ox Last 24 Hr 97.6 F-98.4 F 53-77 16-19 98-121/65-76 95-99 General appearance: normal weight - Respiratory Respiratory exam: Present: clear to auscultation bilaterally. Absent: rales, rhonchi, wheezes - Cardiovascular Cardiovascular exam: Present: regular rate and rhythm - GI/Abdominal GI/Abdominal exam: Absent: ascites, distended, tenderness - Extremities Exam Extremities exam: Absent: edema - Neurological Exam Neurological exam: Present: alert, oriented X3 Results - Labs CBC & BMP: 10/24/16 04:34 10/26/16 03:39 Labs: Total bilirubin 3. AST 45 ALT 88 Alkaline phosphatase 619
--- NOTE | 2016-10-26 09:02 | Gastrointestinal Progress Note ---
Assessment and Plan (1) Fever Status: Acute Assessment and plan: 10/26-no reports of abdominal pain, afebrile. LFTs trending downward. Final blood culture report still pending. Tolerating diet. Await these results to assure adequate antibiotic coverage. Plan an addendum to followed by Dr. Lacey. Current Visit: Yes Gastroenterology - PN: Subj Interval history: CC: Questionable cholangitis Patient is seen awake alert sitting up in bed. States he is feeling much better today and had an uneventful night. States he is having no abdominal pain , nausea or vomiting. He is afebrile. States he is tolerating his diet well. Abdomen is soft, nontender. LFTs are trending downward with bilirubin at 3.00. Patient's final blood culture report is still pending at this time. Patient is very anxious to go home today however explained to him that we have to await these results to assure that we have adequate antibiotic coverage. Patient verbalizes understanding. ROS: Denies shortness of breath or chest pain Exam (Progress Note) - Constitutional Vitals: Period Temp Pulse Resp BP Sys/Parry Pulse Ox Last 24 Hr 97.6 F-98.4 F 53-77 16-19 98-121/65-76 95-99 General appearance: normal weight, no acute distress - Head Head exam: Present: normal inspection, normocephalic - Eye Eye exam: Present: other (Lids and conjunctive are unremarkable). Absent: scleral icterus - ENT ENT exam: Present: normal exam, normal oropharynx - Neck Neck exam: Present: normal inspection - Respiratory Respiratory exam: Present: clear to auscultation bilaterally. Absent: rales, rhonchi, wheezes - Cardiovascular Cardiovascular exam: Present: regular rate and rhythm. Absent: diastolic murmur , JVD, systolic murmur - GI/Abdominal GI/Abdominal exam: Present: normal bowel sounds, soft. Absent: ascites, distended, mass, organomegaly, tenderness - Extremities Exam Extremities exam: Present: normal inspection, full ROM - Back Exam Back exam: Present: normal inspection - Neurological Exam Neurological exam: Present: alert, oriented X3 - Psychiatric Psychiatric exam: Present: normal affect, normal mood - Skin Skin exam: Present: normal color, warm, dry Results - Labs CBC & BMP: 10/24/16 04:34 10/26/16 03:39 Lab Results: I have reviewed the past 24 hour labs
[2016-10-26] MEDS: FAMOTIDINE 20 MG TABLET PO SCH ×2 (09:09→20:00)
[2016-10-26] MEDS: ASPIRIN CHEW 81 MG TABLET PO SCH (09:09)
[2016-10-26] MEDS: METOPROLOL TARTRATE 25 MG TABLET PO SCH (09:09)
[2016-10-26] MEDS: PANTOPRAZOLE 40 MG TABLET PO SCH (09:09)
[2016-10-26] MEDS: MULTIVITAMIN (CENTRUM) TABLET PO SCH (09:09)
[2016-10-26] MEDS: COLLAGENASE OINT 30 GM TUBE TOP SCH (09:11)
[2016-10-27] MEDS: CIPROFLOXACIN INJ 400 MG in PREMIX 1 EACH IV SCH ×2 (01:19→14:51)
[2016-10-27] MEDS: ENOXAPARIN 40 MG/0.4 ML SYRINGE SUBCUT SCH (01:22)
[2016-10-27] MEDS: metroNIDAZOLE INJ 500 MG in PREMIX 1 EACH IV SCH ×3 (02:25→18:07)
--- NOTE | 2016-10-27 07:58 | Hospitalist Progress Note ---
Assessment and Plan (1) Fever Status: Acute Assessment and plan: Positive blood culture for broadly sensitive Klebsiella pneumonia. Current Visit: Yes (2) History of biliary stent insertion Status: Chronic Assessment and plan: Presentation April with cholelithiasis ( laparoscopic cholecystectomy performed at that time) and bile duct stricture with subsequent biliary stenting performed at [facility]. Reported progression of CT scan abnormalities with new lesions within the mary hepatis, liver with splenomegaly Current Visit: Yes Hospitalist: Subjective Interval history: 66-year-old male presenting with biliary obstruction and cholelithiasis in April. He underwent ERCP with bile duct stricture and subsequent laparoscopic cholecystectomy. In May was evaluated in [place] undergoing stenting of the bile duct with apparently a tentative diagnosis of possible cholangiocarcinoma. Patient presented with fever and abnormal liver function testing. Blood cultures have returned positive for Klebsiella pneumonia which is broadly sensitive and adequately covered by the current regimen. The patient has been scheduled today for conversion to an metallic metal stent in the bile duct. Vital signs were stable overnight he has been afebrile and continues to feel well. Exam - Constitutional Vitals: Period Temp Pulse Resp BP Sys/Parry Pulse Ox Last 24 Hr 97.3 F-98.6 F 57-74 16-20 118-132/76-88 98-99 General appearance: normal weight, no acute distress - Respiratory Respiratory exam: Present: clear to auscultation bilaterally. Absent: rales, rhonchi, wheezes - Cardiovascular Cardiovascular exam: Present: regular rate and rhythm - GI/Abdominal GI/Abdominal exam: Present: normal bowel sounds. Absent: ascites, distended, tenderness - Extremities Exam Extremities exam: Absent: edema - Neurological Exam Neurological exam: Present: alert, oriented X3 Results - Labs CBC & BMP: 10/24/16 04:34 10/26/16 03:39
[2016-10-27 11:06] LABS: PT Patient Result 10.7 SECS
[2016-10-27] MEDS ORDERED: fentaNYL 100 MCG/2 ML VIAL ONE (12:18)
[2016-10-27] MEDS ORDERED: MIDAZOLAM 2 MG/2 ML VIAL ONE (12:19)
[2016-10-27] MEDS ORDERED: KETAMINE 500 MG/10 ML VIAL ONE (13:03)
[2016-10-27] MEDS ORDERED: LIDOCAINE 2% 5 ML VIAL ONE (13:05)
[2016-10-27] MEDS ORDERED: PROPOFOL 200 MG/20 ML VIAL IV ONE (13:05)
[2016-10-27] MEDS ORDERED: PHENYLEPHRINE 1 MG/10 ML SYRINGE IV ONE (13:05)
--- NOTE | 2016-10-27 13:07 | History and Physical Update ---
History and Physical Update - History and Physical H&P was reviewed, the patient examined and there: are no changes in the patients condition since last H&P was completed. - Physical Exam Mental Status: alert and oriented Heart: regular rate and rhythm Lung: clear to auscultation Abdomen: within normal limits Vitals: within normal limits
[2016-10-27] MEDS ORDERED: GLUCAGON 1 MG VIAL ONE (13:15)
--- NOTE | 2016-10-27 13:41 | Operative Note ---
Date of procedure: 10/27/16 Pre-op diagnosis: Malignant common bile duct stricture/cholangiocarcinoma, cholangitis Procedure: Procedure: Endoscopic retrograde cholangiopancreatography with common bile duct stent replacement (metal stent) Brief clinical abstract: Patient is a 66-year-old male who had ERCP at [facility] in . Radiographic diagnosis of malignant common bile duct stricture was made felt to be cholangiocarcinoma. He had plastic common bile duct stent placed at that time around 5 months ago. He had sepsis episode shortly thereafter with prolonged hospital stay there complicated by ischemic foot losing several toes. He is admitted currently after developing fever which has responded to IV antibiotics but positive blood cultures were noted with Klebsiella pneumoniae. Liver tests also have been elevated and it is felt that cholangitis is source for his bacteremia. Procedure findings: After informed consent was obtained, patient was placed in the prone position. Therapeutic video duodenoscope was inserted into the upper esophagus in blind fashion with no resistance encountered. Esophageal mucosa had normal appearance. Stomach was examined including with fixed view of the cardia and fundus with no abnormality seen. The pyloric channel and duodenal bulb were normal. There was a large periampullary diverticulum again noted. Plastic common bile duct stent was noted exiting the ampulla and was grasped with polypectomy snare. This was removed through the endoscope. Initially, pancreatogram was obtained with the head, neck, and body opacified with no abnormality seen. Tail was partially filled and appeared normal. The endoscope was repositioned. Sphincterotome was advanced into the common bile duct. Biliary tree was filled with contrast. In the mid to proximal common bile duct there was a shouldered tight stricture consistent with malignancy. Mild biliary dilatation was noted proximal to this. Intrahepatics had normal appearance. 0.035 inch guidewire was advanced into the right intrahepatic system. An Evolution [place] 10 mm x 8 cm uncovered metal stent was deployed in good position radiographically and endoscopically with the distal portion of the stent approximately 1 cm into the duodenum. There was excellent drainage of bile and contrast through the stent afterwards. Radiographic films were taken. The endoscope was withdrawn. He appeared to tolerate the procedure well. Impression: #1 malignant appearing common bile duct stricture consistent with cholangiocarcinoma #2 common bile duct stent replacement with metal stent, for cholangitis with bacteremia #3 periampullary diverticulum Recommendations: Could probably discharge home later today if patient asymptomatic with no signs of complication after procedure. Patient has follow- up scheduled with liver surgeon at [facility] in approximately [address] abdomen there next week. Anesthesia: MAC Surgeon / Physician: Florentin Lacey Estimated blood loss: none Specimens: none sent Condition: stable Disposition: post procedure unit Results - Labs CBC & BMP: 10/24/16 04:34 10/26/16 03:39 Discharge Plan - Discharge Medications No Action OLANZapine [Zyprexa] 10 mg PO DAILY Metoprolol Tartrate 12.5 mg PO DAILY OLANZapine [Olanzapine] 5 mg PO Q8HR PRN PRN Reason: Agitation Multivitamin (Centrum) [Centrum Tab] 1 tablet PO DAILY Docusate Sodium 100 mg PO DAILY PRN PRN Reason: Constipation Collagenase Oint [Santyl Oint] 1 applic TOP DAILY #1 applic Aspirin 81 mg PO DAILY Skin Healing Oint (Aquaphor) [Aquaphor] 1 applic TOP DAILY PRN PRN Reason: Wound Healing Acetaminophen 325 mg PO Q6HR PRN PRN Reason: Pain Mild (1-3) And/Or Fever oxyCODONE IR [Roxicodone] 5 mg PO Q4H PRN PRN Reason: Pain Moderate To Severe (4-10) Famotidine 20 mg PO BID - Follow Up or Referral - Forms/Instructions
--- NOTE | 2016-10-27 13:51 | Anesthesia Post-Op ---
Anesthesia Post OP - Post Ansesthetic Evaluation Patient seen in post op: Yes Resp: within normal limits CV: within normal limits Mental: within normal limits Temp: within normal limits [id number]: within normal limits Nausea and Vomiting: within normal limits Pain: within normal limits
--- NOTE | 2016-10-27 14:00 | Fluoroscopy Report ---
[place] ERCP Indication: Malignant stricture CBD. ERCP: Fluoroscopy time 4 minutes 20 seconds, 10 captured images. Initial images show removal of the original stent. Contrast injection wasn't performed showing a significant stenosis of the common bile duct. Later images show placement of a metal stent without angioplasty. Stent is identified on the images a 10 x 80 mm stent. Impression: Placement of metal stent in the distal common bile duct. PROCEDURE INTERPRETED AT [facility] DEPARTMENT OF RADIOLOGY Final Report Signed by: Rex Nicole M.D.
[2016-10-27] MEDS: FAMOTIDINE 20 MG TABLET PO SCH ×2 (14:45→20:39)
[2016-10-27] MEDS: MULTIVITAMIN (CENTRUM) TABLET PO SCH (14:45)
[2016-10-27] MEDS: METOPROLOL TARTRATE 25 MG TABLET PO SCH (14:45)
[2016-10-27] MEDS: PANTOPRAZOLE 40 MG TABLET PO SCH (14:45)
--- NOTE | 2016-10-27 17:48 | Event Note ---
Patient alert and comfortable after ERCP earlier today. He denies abdominal pain or nausea. Abdomen is soft and nontender. No sign of pancreatitis or cholangitis post procedure and I feel he could be discharged today if hospitalist agrees. Patient has follow-up scheduled at [facility] with biliary surgeon.
[2016-10-27] MEDS: COLLAGENASE OINT 30 GM TUBE TOP SCH (19:24)
[2016-10-28] MEDS: ENOXAPARIN 40 MG/0.4 ML SYRINGE SUBCUT SCH (01:24)
[2016-10-28] MEDS: metroNIDAZOLE INJ 500 MG in PREMIX 1 EACH IV SCH ×2 (01:30→09:30)
[2016-10-28] MEDS: CIPROFLOXACIN INJ 400 MG in PREMIX 1 EACH IV SCH (02:33)
--- NOTE | 2016-10-28 09:29 | Gastrointestinal Progress Note ---
Assessment and Plan (1) Fever Status: Acute Assessment and plan: 10/28-no complaints of pain, fever, nausea vomiting. Tolerating diet well. No repeat lab work today. Metal stent placement on yesterday. Follow-up appointment is scheduled at [facility] for next week with Dr. Chan. Plan an addendum to follow Dr. Lacey. 10/26-no reports of abdominal pain, afebrile. LFTs trending downward. Final blood culture report still pending. Tolerating diet. Await these results to assure adequate antibiotic coverage. Plan an addendum to followed by Dr. Lacey. Current Visit: Yes Gastroenterology - PN: Subj Interval history: CC: Cholangitis Patient is seen, dressed, and sitting up in chair. States he had an uneventful night. He is post ERCP on yesterday with findings of malignant appearing common bile duct stricture consistent with cholangiole carcinoma and he had a metal stent placed at that time. He has been afebrile overnight and is tolerating his diet well. He denies any abdominal pain, nausea or vomiting. Abdomen is soft, nontender. Discussed case with Dr. Pete regarding his discharge and follow-up at [facility] next week. ROS: Denies shortness of breath or chest pain Exam (Progress Note) - Constitutional Vitals: Period Temp Pulse Resp BP Sys/Parry Pulse Ox Last 24 Hr 97.0 F-98.1 F 59-83 12-21 102-134/72-82 96-100 - Other Additional findings: General appearance: normal weight, no acute distress - Head Head exam: Present: normal inspection, normocephalic - Eye Eye exam: Present: other (Lids and conjunctive are unremarkable). Absent: scleral icterus - ENT ENT exam: Present: normal exam, normal oropharynx - Neck Neck exam: Present: normal inspection - Respiratory Respiratory exam: Present: clear to auscultation bilaterally. Absent: rales, rhonchi, wheezes - Cardiovascular Cardiovascular exam: Present: regular rate and rhythm. Absent: diastolic murmur , JVD, systolic murmur - GI/Abdominal GI/Abdominal exam: Present: normal bowel sounds, soft. Absent: ascites, distended, mass, organomegaly, tenderness - Extremities Exam Extremities exam: Present: normal inspection, full ROM - Back Exam Back exam: Present: normal inspection - Neurological Exam Neurological exam: Present: alert, oriented X3 - Psychiatric Psychiatric exam: Present: normal affect, normal mood - Skin Skin exam: Present: normal color, warm, dry Results - Labs CBC & BMP: 10/24/16 04:34 10/26/16 03:39 Lab Results: I have reviewed the past 24 hour labs Specialty Discharge - Follow Up or Referrals
[2016-10-28] MEDS: METOPROLOL TARTRATE 25 MG TABLET PO SCH (09:36)
[2016-10-28] MEDS: MULTIVITAMIN (CENTRUM) TABLET PO SCH (09:36)
[2016-10-28] MEDS: FAMOTIDINE 20 MG TABLET PO SCH (09:36)
[2016-10-28] MEDS: ASPIRIN CHEW 81 MG TABLET PO SCH (09:36)
[2016-10-28] MEDS: PANTOPRAZOLE 40 MG TABLET PO SCH (09:37)
--- NOTE | 2016-10-28 10:29 | Discharge Summary ---
<Devin Collins - Last Filed: 10/28/16 11:29> Hospital Course - Hospital Course Hospital Course: Mr. Oates is a 66 year old male that presented to the [place] ED on 10/24/2016 with complaints of fever that began the previous day. He has a past medical history of cholecystectomy and sees [facility] physicians for follow-up care. On admission, CT scan of the abdomen and pelvis showed some chronic wall thickening suggestive of diverticulitis. Liver imaging did not show any acute pathology although his liver function tests were abnormal. He was started on broad-spectrum antibiotics with Cipro and Flagyl and GI was consulted. Blood cultures were ordered and grew Klebsiella pneumoniae which is sensitive to Cipro. Patient underwent an ERCP on 10/28/2015 with an Evolution Cook 10 mm x 8 cm uncovered metal stent replacement deployed into the bile duct. Findings also included malignant appearing common bile duct stricture consistent with cholangiocarcinoma; periampullry diverticulum. He continued to improve clinically, and with consent from GI, he has been cleared for discharge with instructions to keep his scheduled appointments with his hepatic specialist, Dr. Chan, and oncologist at [facility]. Patient has been instructed to come back to the [facility] center for IV levaquin x 3 days then, on Monday, November 01, begin the oral levaquin prescription for 10 more days. Addendum to follow per Dr. Ortega. I have seen and examined Mr Oates and agree with the summary above. He will have his first dose of levaquin IV at 2 pm 12 hours after his last cipro prior to discharge. BCx were repeated prior to giving levaquin. He will have IV levaquin for several more days to equal a week because of his history of sepsis in the past though he is looking and feeling very well today and has been afebrile. 45 minutes were spent in coordinating discharge plan and documentation, medicine reconciliation exam. Specialty Discharge - Follow Up or Referrals Follow up with: Oncologist at, [facility] [Other] (keep your appointment) Dr Dustin [Other] (keep your appointments) Discharge Plan - Discharge Data Disposition: Disch To Home/Self Care - Discharge Medications New Levofloxacin Tab [Levaquin Tab] 750 mg PO DAILY #10 tablet Levofloxacin Inj [Levaquin Inj] 750 mg IV Q24H #3 bag Pantoprazole Tab [Protonix Tab] 40 mg PO DAILY #30 tablet Continue OLANZapine [Zyprexa] 10 mg PO DAILY Metoprolol Tartrate 12.5 mg PO DAILY OLANZapine [Olanzapine] 5 mg PO Q8HR PRN PRN Reason: Agitation Multivitamin (Centrum) [Centrum Tab] 1 tablet PO DAILY Docusate Sodium 100 mg PO DAILY PRN PRN Reason: Constipation Collagenase Oint [Santyl Oint] 1 applic TOP DAILY #1 applic Aspirin 81 mg PO DAILY Skin Healing Oint (Aquaphor) [Aquaphor] 1 applic TOP DAILY PRN PRN Reason: Wound Healing Acetaminophen 325 mg PO Q6HR PRN PRN Reason: Pain Mild (1-3) And/Or Fever oxyCODONE IR [Roxicodone] 5 mg PO Q4H PRN PRN Reason: Pain Moderate To Severe (4-10) Famotidine 20 mg PO BID - Follow Up or Referral Follow Up: Oncologist at, [facility] [Other] (keep your appointment) Dr Dustin [Other] (keep your appointments) - Forms/Instructions Instructions: Endoscopic Biliary Stenting (DC), Bacterial Pneumonia (DC) Exam - Constitutional Vitals: Period Temp Pulse Resp BP Sys/Parry Pulse Ox Last 24 Hr 97.0 F-98.1 F 57-83 12-21 102-134/72-83 96-100 Discharge Results Procedures and tests throughout hospitalization: Pending Orders 10/28/16 10:53 Blood Culture Stat Labs on day of discharge: Labs from last 24 hours 10/27/16 Unknown CA 19-9 Antigen < 1.2 DS: Provider Date of admission: 10/24/16 01:42 Primary care physician: Florentin Jacques, Attending physician on admission: Jemima Tipton MD Consults: 10/24/16 01:42 Consult to Physician [CONS] Routine Comment: increased lft's Consulting Provider: Florentin Lacey Consulting Provider Notified: Yes When should Consulting Provider be notified: Now Person Notified: dr. lacey Date Notified: 10/24/16 Consult Notification Comment: er physician contacted dr. lacey Discharging clinician: Devin HIGH Expected date of discharge: 10/28/16 <Deneen Ortega - Last Filed: 10/28/16 13:44> Hospital Course - Time spent with patient Time with patient DS: Greater than 30 minutes Diagnosis - Discharge Diagnosis (1) Bacteremia due to Klebsiella pneumoniae Status: Acute (2) Fever Status: Resolved (3) Elevated liver enzymes Status: Resolved (4) History of biliary stent insertion Status: Chronic Discharge Plan - Discharge Data Condition at Discharge: Stable Discharge Diet: advance to your usual diet Activity: resume usual activities as tolerated - Forms/Instructions Additional Discharge Instructions: Come to the [facility] for IV levaquin for 3 days then on MondayNovember 01, begin the oral levaquin prescription for 10 more days. Exam - Constitutional General appearance: normal weight, no acute distress - Head Head exam: Present: normocephalic, atraumatic - Eye Eye exam: Present: EOMI. Absent: scleral icterus - Respiratory Respiratory exam: Present: clear to auscultation bilaterally - Cardiovascular Cardiovascular exam: Present: regular rate and rhythm - GI/Abdominal GI/Abdominal exam: Present: normal bowel sounds, soft. Absent: tenderness - Extremities Exam Extremities exam: Absent: edema - Neurological Exam Neurological exam: Present: alert, oriented X3 Discharge Results Procedures and tests throughout hospitalization: Pending Orders 10/28/16 10:53 Blood Culture Stat
[2016-10-28] MEDS ORDERED: LEVOFLOXACIN INJ 750 MG in PREMIX 1 EACH IV SCH ×3 (10:30→15:00)
[2016-10-28 11:25] VITALS: BP 134/83
[2016-10-28] MEDS: COLLAGENASE OINT 30 GM TUBE TOP SCH (15:02)
== END 2016-10-28 15:30 | disposition home or self-care (01) | DRG 436 ==
LOC: N.ED 19:45 → SUATTDRO 10-24 01:42 → N.EDINP 10-24 01:42 → N.3E 10-24 02:18
PROVIDERS: ADMIT Family Medicine; ATTEND Internal Medicine
PROC: ERCPWST (ICD-10-PCS; 2016-10-27 12:05)